=== PATIENT | male | born 2000 | race Caucasian/White ===

== ENCOUNTER 2021-06-21 14:00 | Emergency (ER) | payer OTHER, SELFPAY ==
--- NOTE | ~2021-06-21 | XR_ITS ---
EXAMINATION: XR FOOT, RIGHT CLINICAL INFORMATION: Toe injury, third and fourth. COMPARISON: None TECHNIQUE: AP, lateral, and oblique views of the right foot. FINDINGS: The bones and soft tissues are normal. No fracture. Alignment is anatomic. Joint spaces are maintained. XR/XR foot RT 2V IMPRESSION: Normal right foot.
[2021-06-21 14:03] VITALS: BP 124/75; PULSE 88; RESP 18; TEMP 36.4; O2SAT 97; BMI 25.7
--- NOTE | 2021-06-21 14:51 | ED_ITS ---
HPI - Extremity Injury (Lower) General Chief Complaint: Extremity Injury, Lower Stated Complaint: rt ft injury Time Seen by Provider: 06/21/21 14:51 Source: patient Mode of arrival: ambulatory History of Present Illness HPI Narrative: 20-year-old male presenting to the ED complaining of right foot pain s/p dropping glass table on foot around 4:00 a.m. denies glass breaking/shattering. Denies injury to other area, numbness, tingling, weakness. Has been ambulatory with pain MD complaint: foot injury Related Data Previous Rx's Medication Instructions Recorded acetaminophen 500 mg tablet 500 mg PO Q6H PRN #20 tab 06/21/21 (Tylenol Extra Strength) naproxen 500 mg tablet 500 mg PO BID PRN 10 Days #20 tab 06/21/21 Allergies Allergy/AdvReac Type Severity Reaction Status Date / Time lactase [From Dairy Aid] AdvReac Diarrhea Verified 06/21/21 14:03 Review of Systems Review of Systems: Constitutional: No Fever, No Chills Musculoskeletal: + joint pain, No Myalgias, +Joint Swelling Skin: No Skin Lesions, No rash Neuro: No Weakness, No Numbness, No Paresthesias Yes all other systems are reviewed and are negative [facility] Past Medical History Attestation statement: The following information was validated with the patient. Social History Social History Advance Directives: No Advance Directives Information Provided: No Physical Exam Vital Signs: Vital Signs: Last Vital Signs Temp 97.6 F 06/21/21 14:03 Pulse 88 06/21/21 14:03 Resp 18 06/21/21 14:03 BP 124/75 06/21/21 14:03 Pulse Ox 97 06/21/21 14:03 Body Mass Index 25.7 Const: General: cooperative and healthy appearing Orientation/consciousness: patient oriented x3 Limitations: no limitations HENMT: Head: Yes normal to inspection Ears: hearing grossly normal bilaterally General nose exam: Normal external nose present Face and sinus: Yes normal facial exam Eyes: General: appearance normal, both eyes and all related structures EOM: EOMs intact bilaterally Neck: Neck: Yes normal visual inspection Resp: Effort & Inspection: normal respiratory effort and no respiratory distress Cardio: Rate: regular rate Peripheral pulses: dorsalis pedis present Skin: Rashes: no rashes Wounds: no wounds Neuro: General: patient oriented x3 Gait exam (Neuro): Normal gait present Extrem: Other: Right foot with notable swelling to dorsal aspect, distally, at metatarsals 2-4, with limited ROM of those toes 2/2 pain. Neurovascularly intact Sensation intact to light touch Right ankle nontender, full range of motion intact to ankle Course Course Course Narrative: XR foot RT 2V IMPRESSION: Normal right foot. >> results discussed with patient. Offered hard-soled shoe however refused Discharge Plan Discharge Clinical Impression: Foot injury Qualifiers: Encounter type: initial encounter Laterality: right Qualified Code(s): S99.921A - Unspecified injury of right foot, initial encounter Patient Disposition: Home, Self-Care Instructions: Crush Injury (ED) Additional Instructions: Your x-rays are unremarkable Ice and elevate your foot Naproxen as an anti-inflammatory/pain medication, take with food In addition take Tylenol If pain persists or worsens/becomes unbearable please return to the ED Follow-up with your doctor Prescriptions: New acetaminophen [Tylenol Extra Strength] 500 mg tablet 500 mg PO Q6H PRN (Reason: pain or fever) Qty: 20 RF: 0 naproxen 500 mg tablet 500 mg PO BID PRN (Reason: pain) 10 Days Qty: 20 RF: 0 Referrals: Physician,None [Primary Care Provider] - 5 days
== END 2021-06-21 15:05 | disposition home or self-care (01) ==
PROVIDERS: Emergency Provider Emergency Medicine
DX: S99.921A Unspecified injury of right foot, initial encounter (principal); W20.8XXA Other cause of strike by thrown, projected or falling object, initial encounter; Y93.89 Activity, other specified; Y92.9 Unspecified place or not applicable; Y99.9 Unspecified external cause status
CPT/HCPCS: 73620; 99283